=== PATIENT | female | born 1945 | race Caucasian/White ===

== ENCOUNTER 2019-08-26 13:36 | Outpatient (CLI) | payer OTHER ==
[~2019-08-26 13:36] MED LIST: SYNTHROID50 MCG
== END 2019-08-26 13:53 | disposition home or self-care (01) ==
LOC: SONOGRAMA 13:36
DX: M17.0 Bilateral primary osteoarthritis of knee (principal)

== ENCOUNTER 2020-11-12 22:28 | Emergency (ER) | payer OTHER ==
[~2020-11-12] VITALS: Ht 162.6 cm; Wt 59.0 kg
== END 2020-11-12 23:26 | disposition home or self-care (01) ==
LOC: ER 22:28
DX: S00.03XA Contusion of scalp, initial encounter (principal); W18.09XA Striking against other object with subsequent fall, initial encounter; Y93.89 Activity, other specified; Y92.512 Supermarket, store or market as the place of occurrence of the external cause; Y99.8 Other external cause status

== ENCOUNTER 2021-01-06 11:54 | Outpatient (CLI) | payer OTHER | END 2021-01-06 11:56 | disposition home or self-care (01) | LOC: LAB 11:54 | PROVIDERS: ATTEND Orthopaedic Surgery | DX: E88.89 Other specified metabolic disorders (principal); M85.88 Other specified disorders of bone density and structure, other site; E21.2 Other hyperparathyroidism; M81.8 Other osteoporosis without current pathological fracture; E55.9 Vitamin D deficiency, unspecified; E56.1 Deficiency of vitamin K ==

== ENCOUNTER 2021-01-19 16:12 | Outpatient (CLI) | payer OTHER | END 2021-01-19 16:20 | disposition home or self-care (01) | LOC: RAD 16:12 | PROVIDERS: ATTEND Orthopaedic Surgery | DX: M19.021 Primary osteoarthritis, right elbow (principal) ==

== ENCOUNTER 2021-04-26 14:52 | Outpatient (CLI) | payer OTHER | END 2021-04-26 14:59 | disposition home or self-care (01) | LOC: RAD 14:52 | PROVIDERS: ATTEND Physical Medicine & Rehabilitation | DX: M20.11 Hallux valgus (acquired), right foot (principal); M79.671 Pain in right foot ==

== ENCOUNTER 2021-07-14 16:01 | Outpatient (CLI) | payer OTHER | END 2021-07-14 16:07 | disposition home or self-care (01) | LOC: RAD 16:01 | PROVIDERS: ATTEND Orthopaedic Surgery | DX: M25.521 Pain in right elbow (principal) ==

== ENCOUNTER 2022-12-06 14:17 | Outpatient (CLI) | payer OTHER ==
[~2022-12-06 14:17] MED LIST changes: +CAPSAICIN42.5 GM TOP
== END 2022-12-06 14:29 | disposition home or self-care (01) ==
LOC: MRI 14:17
PROVIDERS: ATTEND Psychiatry & Neurology Clinical Neurophysiology
DX: G30.1 Alzheimer's disease with late onset (principal); G31.84 Mild cognitive impairment of uncertain or unknown etiology
CPT/HCPCS: 70551

== ENCOUNTER → 2023-04-10 | Outpatient (CLI) | payer OTHER ==
[~2023-04-10] MED LIST changes: +DICLOFENAC POTA50 MG PO
== END | disposition home or self-care (01) ==
LOC: RAD 15:16
PROVIDERS: ATTEND Orthopaedic Surgery Sports Medicine
DX: M17.0 Bilateral primary osteoarthritis of knee (principal)

== ENCOUNTER → 2023-08-08 12:48 | Outpatient (CLI) | payer OTHER ==
[2023-08-08 14:17] LABS: URINE APPEARANCE Clear; URINE BILIRRUBIN Negative (NEGATIVE); URINE BLOOD Negative; URINE COLOR Yellow; URINE GLUCOSE Negative (NEGATIVE); URINE LEUKOCYTE Negative; URINE NITRATE Negative; URINE PROTEIN Negative (NEGATIVE); URINE UROBILINOGEN 0.2 E.U./dl
[2023-08-08 14:20] LABS: URINE BACTERIA 6.2 uL (0.0-1933); URINE RBC 29.3 uL (0.0-20.8)
[2023-08-08 14:22] LABS: URINE EPITHELIAL CELLS 0.7 uL (0.0-38.8)
[2023-08-08 14:26] LABS: HEMATOCRIT 39.6 % (36.0-45.00); HEMOGLOBIN 13.5 g/dL (12.0-15.00); MEAN CELL VOLUME 89.9 fL (80.00-100.00); MEAN CORPUSCULAR HEMOGLOBIN 30.5 pg (27.00-32.0); PLATELET COUNT 288 K/uL (150-450); RED BLOOD COUNT 4.41 M/uL (4.00-6.00)
[2023-08-08 14:57] LABS: ALBUMIN 3.7 gm/dL (3.4-5.0); BILIRUBIN TOTAL 0.73 mg/dL (0.3-1.2); CALCIUM 8.7 mg/dL (8.5-10.1); CREATININE SERUM 0.49 mg/dL (0.55-1.02); GFR 122.14; GLOBULINA 3.3 G/DL (2.4-3.5); MAGNESIUM 2.2 mg/dL (1.8-2.4); PHOSPHOROUS 3.8 mg/dL (2.5-4.9); POTASSIUM 3.85 mEq/L (3.5-5.1); T4 TOTAL 11.33 UG/DL (4.8-13.9); TSH 1.38 uIU/mL (0.358-3.74)
== END | disposition home or self-care (01) ==
LOC: LAB 12:48
PROVIDERS: ATTEND Internal Medicine Rheumatology
DX: R77.8 Other specified abnormalities of plasma proteins (principal); E03.8 Other specified hypothyroidism; I10 Essential (primary) hypertension; E55.9 Vitamin D deficiency, unspecified; M85.9 Disorder of bone density and structure, unspecified; E56.1 Deficiency of vitamin K; E21.3 Hyperparathyroidism, unspecified; E88.89 Other specified metabolic disorders; M81.8 Other osteoporosis without current pathological fracture

== ENCOUNTER 2024-01-22 09:40 | Outpatient (CLI) | payer OTHER | END 2024-01-22 09:51 | disposition home or self-care (01) | LOC: RAD 09:40 | DX: K76.0 Fatty (change of) liver, not elsewhere classified (principal); M15.0 Primary generalized (osteo)arthritis ==

== ENCOUNTER → 2024-07-08 | Outpatient (CLI) | payer OTHER | END | disposition home or self-care (01) | LOC: SONOGRAMA 15:01 | DX: E04.2 Nontoxic multinodular goiter (principal) ==

== ENCOUNTER 2024-08-28 16:45 | Outpatient (CLI) | payer OTHER | END 2024-08-28 16:52 | disposition home or self-care (01) | LOC: RAD 16:45 | PROVIDERS: ATTEND Podiatrist | DX: M79.671 Pain in right foot (principal); M79.672 Pain in left foot ==

== ENCOUNTER 2024-12-02 15:06 | Outpatient (CLI) | payer OTHER | END 2024-12-02 15:09 | disposition home or self-care (01) | LOC: RAD 15:06 | PROVIDERS: ATTEND Specialist | DX: M25.561 Pain in right knee (principal) ==

== ENCOUNTER 2024-12-23 14:54 | Outpatient (CLI) | payer OTHER | END 2024-12-23 15:05 | disposition home or self-care (01) | LOC: SONOGRAMA 14:54 | PROVIDERS: ATTEND Podiatrist Foot Surgery | DX: G57.60 Lesion of plantar nerve, unspecified lower limb (principal) ==

== ENCOUNTER 2025-01-07 12:56 | Outpatient (CLI) | payer OTHER | END 2025-01-07 13:01 | disposition home or self-care (01) | LOC: SONOGRAMA 12:56 | PROVIDERS: ATTEND Physical Medicine & Rehabilitation | DX: M77.11 Lateral epicondylitis, right elbow (principal) ==

== ENCOUNTER 2025-01-12 13:00 | Outpatient (CLI) | payer OTHER | END 2025-01-12 13:09 | disposition home or self-care (01) | LOC: RAD 13:00 | PROVIDERS: ATTEND Radiology Diagnostic Radiology | DX: M77.11 Lateral epicondylitis, right elbow (principal) ==

== ENCOUNTER 2025-02-19 14:48 | Outpatient (CLI) | payer OTHER | END 2025-02-19 14:58 | disposition home or self-care (01) | LOC: MRI 14:48 | DX: M77.42 Metatarsalgia, left foot (principal) | CPT/HCPCS: 73721 ==